=== PATIENT | male | born 1965 | race American Indian/Alaskan Native ===

== ENCOUNTER 2019-12-03 11:50 | Emergency (ER) | payer OTHER ==
[2019-12-03] MEDS ORDERED: ASPIRIN 325 MG TAB PO ONE (12:18)
--- NOTE | 2019-12-03 12:19 | Event Note ---
ED Screening Note Date of service: 12/03/19 Time: 12:16 ED Screening Note: This is a 54 y.o. M. that presents to the ER with palpitations. Patient states his defibrillator fired twice today. Patient states he continue to feel his heart stop and kick back in with moderate chest pain. This initial assessment/diagnostic orders/clinical plan/treatment(s) is/are subject to change based on patients health status, clinical progression and re- assessment by fellow clinical providers in the ED. Further treatment and workup at subsequent clinical providers discretion. Patient/guardian urged not to elope from the ED as their condition may be serious if not clinically assessed and managed. Initial orders include: Labs EKG CXR
--- NOTE | 2019-12-03 12:44 | XRay Report ---
CHEST 2 VIEWS INDICATION / CLINICAL INFORMATION: Chest Pain. COMPARISON: None available. FINDINGS: SUPPORT DEVICES: Left subclavian pacemaker/ICD leads. HEART / MEDIASTINUM: No significant abnormality. LUNGS / PLEURA: Linear scar/atelectasis left lower lobe. No significant pulmonary or pleural abnormal ity. No pneumothorax. ADDITIONAL FINDINGS: No significant additional findings. IMPRESSION: 1. No acute findings. Signer Name: Davie Shirley MD Signed: 12/03/2019 12:40 PM Workstation Name: [id number]
[2019-12-03 13:44] LABS: Basophils # (Auto) 0.1 K/mm3 (0.0-0.1); Basophils % (Auto) 1.7 % (0.0-1.8); Eosinophils # (Auto) 0.4 K/mm3 (0.0-0.4); Eosinophils % (Auto) 6.5 % (0.0-4.3); Hematocrit 41.1 % (35.5-45.6); Hemoglobin 13.7 gm/dl (11.8-15.2); Lymphocytes # (Auto) 2.3 K/mm3 (1.2-5.4); Lymphocytes % (Auto) 37.4 % (13.4-35.0); Mean Corpuscular HGB Conc 33 % (32-34); Mean Corpuscular Volume 89 fl (84-94); Monocytes # (Auto) 0.7 K/mm3 (0.0-0.8); Monocytes % (Auto) 11.3 % (0.0-7.3); Platelet Count 278 K/mm3 (140-440); Red Blood Count 4.63 M/mm3 (3.65-5.03); Red Cell Distribution Width 14.8 % (13.2-15.2)
[2019-12-03 14:06] LABS: BUN/Creatinine Ratio 9; Blood Urea Nitrogen 8 mg/dL (9-20); Calcium 9.9 mg/dL (8.4-10.2); Hemolysis Index 14
--- NOTE | 2019-12-03 14:22 | Emergency Department Report ---
ED Palpitations HPI - General Chief Complaint: Arrhythmia/Palpitations Stated Complaint: DIFIBULATOR WENT OUT Time Seen by Provider: 12/03/19 12:15 Source: patient Mode of arrival: Ambulatory Limitations: No Limitations - History of Present Illness Initial Comments: Mr. Kan is a very pleasant gentleman with history of CAD, PVD, CHF, hyperten [place], [place] who presents after his AICD fired twice. His current second AICD was placed May 2017 at the [facility] in [place]. First AICD was placed in 2008. He states that his AICD was placed because his heart stops. He was in his normal state of health. He lives in [place]. He is here visiting his relatives. Has a history of tobacco and alcohol abuse. He did drink alcohol last night. He states that he feels as if his heart squeezes hard for second and it hurts. He does not have any chest pain or shortness of breath at this time. No syncopal episode. 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 He has a history of a bilateral rotator cuff repair. Left knee ligament reconstruction, he has several stents and one balloon in his lower extremities to treat peripheral arterial disease Medications lisinopril 40 mg per day Chlorthalidone 25 mg per day clopidogrel 25 mg per day Metoprolol 100 mg per day Spironolactone 25 mg per day Amlodipine 10 mg per day Atorvastatin 80 mg per day Percocet 10 mg 3 x day Complaint: palpitations -: Gradual Context: AICD discharge Arrythmia History: AICD Associated Symptoms: denies other symptoms Treatments Prior to Arrival: beta-pepe, calcium channel pepe, other (home medications as per HPI were taken this morning) ED Review of Systems ROS: Stated complaint: DIFIBULATOR WENT OUT Other details as noted in HPI Comment: All other systems reviewed and negative Constitutional: denies: fever, malaise Respiratory: denies: cough, shortness of breath Cardiovascular: palpitations. denies: chest pain ED Past Medical Hx - Past Medical History Previous Medical History?: Yes Hx Hypertension: Yes Hx Heart Attack/AMI: Yes Hx Congestive Heart Failure: Yes Additional medical history: AICD, PVD - Surgical History Past Surgical History?: Yes Additional Surgical History: Left knee ligament reconstruction, bilateral rotator cuff surgery, surgical intervention of peripheral vascular disease with stents and balloon, - Family History Family history: hypertension - Social History Smoking Status: Current Every Day Smoker Substance Use Type: Alcohol Other Social History: Lives in [place]. He drove to [place] per private auto. Here visiting relatives. ED Physical Exam - General Limitations: No Limitations General appearance: alert, in no apparent distress - Head Head exam: Present: atraumatic, normocephalic - Eye Eye exam: Present: normal appearance - ENT ENT exam: Present: mucous membranes moist - Neck Neck exam: Present: normal inspection, full ROM. Absent: tenderness, meningismus - Respiratory Respiratory exam: Present: normal lung sounds bilaterally. Absent: respiratory distress, wheezes, rales, rhonchi - Cardiovascular Cardiovascular Exam: Present: regular rate, normal rhythm, normal heart sounds. Absent: systolic murmur, diastolic murmur, rubs, gallop - GI/Abdominal GI/Abdominal exam: Present: soft, normal bowel sounds. Absent: distended, tenderness, guarding, rebound - Rectal Rectal exam: Present: deferred - Extremities Exam Extremities exam: Present: normal inspection - Back Exam Back exam: Present: normal inspection - Neurological Exam Neurological exam: Present: alert, oriented X3 - Psychiatric Psychiatric exam: Present: normal affect, normal mood - Skin Skin exam: Present: warm, dry, intact, normal color. Absent: rash ED Course Vital Signs 12/03/19 12:05 Temperature 98.3 F Pulse Rate 66 Respiratory 20 Rate Blood Pressure 160/97 O2 Sat by Pulse 100 Oximetry ED Medical Decision Making - Lab Data Result diagrams: 12/03/19 13:13 12/03/19 13:13 Laboratory Results - last 24 hr 12/03/19 12/03/19 13:13 13:13 WBC 6.0 RBC 4.63 Hgb 13.7 Hct 41.1 MCV 89 MCH 30 MCHC 33 RDW 14.8 Plt Count 278 Lymph % (Auto) 37.4 H [place] % (Auto) 11.3 H Eos % (Auto) 6.5 H Baso % (Auto) 1.7 Lymph # 2.3 [place] # 0.7 Eos # 0.4 Baso # 0.1 Seg Neutrophils % 43.1 Seg Neutrophils # 2.6 Sodium 142 Potassium 5.1 H Chloride 104.9 Carbon Dioxide 20 L Anion Gap 22 BUN 8 L Creatinine 0.9 Estimated GFR > 60 BUN/Creatinine Ratio 9 Glucose 79 Calcium 9.9 Troponin T < 0.010 - EKG Data 12/03/19 14:22 EKG obtained 1157 Normal sinus rhythm rate 60 beats minute left axis deviation normal QTc Q waves in inferior leads no ST elevation nonspecific T-wave pattern - Radiology Data Radiology results: report reviewed No acute findings according to radiology impression - Medical Decision Making Mr. Kan presents with sensation of AICD firing and palpitations. I did observe PVCs on cardiac care nurse during my evaluation. [employer] financial services representative interrogated the AICD. The AICD did not fire. It was a vibratory alert concerning atrial lead placement. There is no pacing activity. There was no arrhythmia. Mr. Kan was given reassurance. Recommended increased hydration and compliance with his medications to address the PVCs. Troponin negative 2. Electrolytes were within normal limits. Critical care attestation.: If time is entered above; I have spent that time in minutes in the direct care of this critically ill patient, excluding procedure time. ED Disposition Clinical Impression: Palpitations, AICD problem Disposition: -01 TO HOME OR SELFCARE Is pt being admited?: No Does the pt Need Aspirin: No Condition: Stable Instructions: Palpitations (ED), Premature Ventricular Contractions (ED)
[2019-12-03] MEDS ORDERED: METOPROLOL TARTRATE 50 MG TAB PO ONE (15:48)
[2019-12-03 16:04] VITALS: BP 150/84
== END 2019-12-03 16:02 | disposition home or self-care (01) ==
LOC: ED 11:50
DX: T82.118A Breakdown (mechanical) of other cardiac electronic device, initial encounter (principal); R00.2 Palpitations; I25.2 Old myocardial infarction; I11.0 Hypertensive heart disease with heart failure; I50.9 Heart failure, unspecified; F17.200 Nicotine dependence, unspecified, uncomplicated; Z98.890 Other specified postprocedural states; Y83.8 Other surgical procedures as the cause of abnormal reaction of the patient, or of later complication, without mention of misadventure at the time of the procedure; Y92.89 Other specified places as the place of occurrence of the external cause
CPT/HCPCS: 36415; 71046; 80048; 83735; 84100; 84484; 85025; 93005; 93010